=== PATIENT | male | born 1955 | race Caucasian/White ===

== ENCOUNTER → 2024-06-26 | Day surgery (SDC) | payer MEDICARE, OTHER ==
[~2024-06-26] MED LIST: HYDROmorphone 0.5 MG/0.5 ML Syringe IVPUSH PRN; Lactated Ringers 1,000 ML IV ONE; Midazolam 1 MG/ML 2 ML SDV ONE; Phenylephrine 1% 10 MG/ML SDV ONE; Propofol 200 MG/20 ML SDV ONE; Sodium Chloride 0.9% 10 ML Syringe FLUSH PRN; Sodium Chloride 0.9% 10 ML Syringe FLUSH SCH; ceFAZolin 2 GM Vial ONE; ePHEDrine 50 MG/ML SDV ONE; fentaNYL 100 MCG/2 ML SDV IVPUSH PRN; fentaNYL 100 MCG/2 ML SDV ONE
[2024-06-26] MEDS: Lactated Ringers 1,000 ML IV SCH (08:20)
[2024-06-26] MEDS: Pregabalin 25 MG Cap PO ONE (08:26)
[2024-06-26] MEDS: oxyCODONE ER 10 MG TAB.ER PO ONE (08:26)
[2024-06-26] MEDS: Acetaminophen 325 MG Tab PO ONE (08:26)
[2024-06-26] MEDS: Morphine 8 MG, EPINEPHrine 0.3 MG, Cefuroxime 750 MG, Ketorolac 30 MG, Sodium Chloride ... PRN (10:17)
[2024-06-26] MEDS: Tranexamic Acid 1,000 MG/10 ML Vial ONE (10:20)
[2024-06-26] MEDS: Vancomycin 1 GM SDV ONE (10:20)
[2024-06-26] MEDS: Ondansetron 4 MG/2 ML SDV IVPUSH PRN (12:39)
[2024-06-26] MEDS: Scopalamine 1mg/3day Transdermal Patch TOP PRN (14:42)
[2024-06-26] MEDS: Metoclopramide 10 MG/2 ML SDV IVPUSH PRN (14:42)
[2024-06-26] MEDS: ePHEDrine 50 MG/ML SDV IVPUSH PRN (15:49)
[2024-06-26] MEDS: oxyCODONE 5 MG Tab PO PRN (23:11)
[2024-06-27] MEDS: Docusate Sodium 100 MG Cap PO ONE (10:39)
[2024-06-27] MEDS: Polyethylene Glycol 3350 Powder 17 GM Packet PO ONE (10:39)
[2024-06-27] MEDS: Hydrochlorothiazide 25 MG Tab PO ONE (10:39)
[2024-06-27] MEDS: Lisinopril 10 MG Tab PO ONE (10:40)
== END | disposition home or self-care (01) ==
LOC: JD.SDS 08:17
PROVIDERS: ATTEND Orthopaedic Surgery
DX: M16.11 Unilateral primary osteoarthritis, right hip (principal); E03.9 Hypothyroidism, unspecified; I12.9 Hypertensive chronic kidney disease with stage 1 through stage 4 chronic kidney disease, or unspecified chronic kidney disease; N18.9 Chronic kidney disease, unspecified; E89.2 Postprocedural hypoparathyroidism; E78.5 Hyperlipidemia, unspecified; Z79.890 Hormone replacement therapy; Z79.899 Other long term (current) drug therapy
CPT/HCPCS: 0055T; 27130; 36415; 73501; 86850; 86900; 86901; 97162; A9270; C1713; C1776; J0171; J0690; J0697; J1885; J2250; J2270; J2371; J2405; J2704; J2765; J3010; J3370; J7120; 01214; 99100; J3490